=== PATIENT | male | born 1955 ===

== ENCOUNTER 2016-09-17 08:52 | Observation (INO) | payer MEDICAID ==
[2016-09-17 09:03] VITALS: BMI 35.0
[2016-09-17] MEDS ORDERED: Sodium Chloride 0.9% 1,000 ML IV STA (09:33)
[2016-09-17 10:19] LABS: BASO % 0.6 % (0.0-2.0); EOS % 0.4 % (0.0-4.0); HEMOGLOBIN 15.4 g/dL (12.0-18.0); MEAN CELL VOLUME 97.6 fl (80.0-94.0); MEAN CORPUSCULAR HEMOGLOBIN 32.6 pg (27.0-31.0); MEAN CORPUSCULAR HGB CONC 33.4 g/dL (33.0-37.0); MONO # 0.9 K/uL (0.0-0.8); MONO % 11.8 % (0.0-10.0); NEUT % 62.2 % (50.0-75.0); NRBC % 0.1 % (0.0-0.0); RBC 4.73 Mil/uL (4.40-5.90); RED CELL DISTRIBUTION WIDTH 12.8 % (11.5-14.5)
[2016-09-17 10:20] LABS: URINE BACTERIA RARE (<OCC); URINE BILIRUBIN NEGATIVE (NEGATIVE); URINE BLOOD NEGATIVE (NEGATIVE); URINE CLARITY SLIGHTY-CLOUDY (Clear); URINE COLOR YELLOW (YELLOW); URINE GLUCOSE (UA) NEG (Normal); URINE LEUKOCYTE ESTERASE NEG Leu/uL (Negative); URINE NITRATE NEGATIVE (NEGATIVE); URINE PROTEIN NEGATIVE (NEGATIVE)
[2016-09-17 10:26] LABS: ALB/GLOB RATIO 1.3 (1.0-2.1); ALBUMIN 4.9 g/dL (3.5-5.0); ALT/SGPT 35 U/L (21-72); AST/SGOT 42 U/L (17-59); BLOOD UREA NITROGEN 10 mg/dl (9-20); CALCIUM 11.3 mg/dL (8.4-10.2); GFR AFRICAN-AMERICAN > 60; GFR NON-AFRICAN AMERICAN > 60
[2016-09-17] MEDS ORDERED: Iohexol 300 100 ML IJ ONE (10:34)
[2016-09-17] MEDS ORDERED: Sodium Chloride 0.9% 50 ML IV ONE (10:35)
--- NOTE | 2016-09-17 10:57 | RAD ---
HISTORY: chest pain/ r/o infiltrate COMPARISON: 05/08/2014. TECHNIQUE: Chest PA and lateral FINDINGS: LUNGS: The lungs are well inflated and clear. PLEURA: No significant pleural effusion identified. No pneumothorax apparent. CARDIOVASCULAR: Normal. OSSEOUS STRUCTURES: No significant abnormalities. VISUALIZED UPPER ABDOMEN: Normal. OTHER FINDINGS: None. IMPRESSION: No active pulmonary disease.
--- NOTE | 2016-09-17 12:09 | CT ---
PROCEDURE: CT Pelvis with contrast HISTORY: Rectal pain, HIV, fever r/o abscess COMPARISON: None. TECHNIQUE: Contiguous axial images of the pelvis with contrast. Coronal and sagittal reformats generated. Contrast dose: 95 cc Omnipaque 300 Radiation dose: Total exam DLP = 665.27 mGy-cm. This CT exam was performed using one or more of the following dose reduction techniques: Automated exposure control, adjustment of the mA and/or kV according to patient size, and/or use of iterative reconstruction technique. FINDINGS: BLADDER: Grossly normal in appearance. No mass. REPRODUCTIVE ORGANS: The prostate gland is normal in size. VISUALIZED BOWEL: Normal in caliber. There is abnormal soft tissue in the perianal region with 1.2 x 1.3 cm low-attenuation collection in the right perianal region and 1.3 x 1.2 cm low attenuation collection in the posterior left paramedian perianal region. There is surrounding fat stranding an also fat stranding in the distal rectal foci up. No evidence of abscess in the distal rectum foci. PERITONEUM: Unremarkable, as visualized. No free fluid. No free air. LYMPH NODES: No enlarged lymph nodes. VASCULATURE: Normal-appearing. BONES: No fracture or focal lesion. OTHER FINDINGS: There are bilateral small fat containing inguinal hernias. IMPRESSION: Findings are most compatible with a 1.2 x 1.3 cm abscess in the right perianal region and a 1.3 x 1.2 cm abscess in the posterior and left paramedian perianal region.
[2016-09-17] MEDS ORDERED: Piperacillin/Tazobact 4.5 GM in Sodium Chloride 0.9% 100 ML IVPB STA (12:14)
--- NOTE | 2016-09-17 12:21 | ED PDOC ---
HPI: General Adult Time Seen by Provider: 09/17/16 09:10 Chief Complaint (Nursing): Flu-like Symptoms Chief Complaint (Provider): sore throat History Per: Patient History/Exam Limitations: no limitations Onset/Duration Of Symptoms: Days (x 3-4) Have you had recent travel within the past 21 days to any of the following countries: [place], [place], [place] or [place]?: No Additional Complaint(s): Gian Newton is a 60 year old male, with a previous medical history of HIV positive and hemorrhoids, who presents to the ED with complaints of a sore throat associated with body aches, chills and rectal pain ongoing for the past 3 -4 days. Patient denies any bloody stool or rectal trauma. Patient reports last blood work showed an undetectable viral load. PMD: John Paul Rios MD Past Medical History Reviewed: Historical Data, Nursing Documentation, Vital Signs Vital Signs: Last Vital Signs Temp 97.7 F 09/17/16 15:31 Pulse 78 09/17/16 15:31 Resp 19 09/17/16 15:31 BP 128/78 09/17/16 15:31 Pulse Ox 98 09/17/16 15:31 - Medical History PMH: Anxiety, Back Problems, Depression, HIV Denies: Chronic Kidney Disease - Family History Family History: States: Unknown Family Hx - Immunization History Hx Influenza Vaccination: No Hx Pneumococcal Vaccination: No - Home Medications Home Medications: Ambulatory Orders Medication Instructions Recorded Amitriptyline [Elavil] 25 mg PO HS 09/17/16 Amoxicillin/Clavulanate [Augmentin 1 tab PO BID #14 tab 09/17/16 875 MG-125 MG] Elviteg/Bianca/Emtric/Tenofo Dis 1 tab PO DAILY 09/17/16 [Stribild Tablet] Ergocalciferol (Vitamin D2) 50,000 unit PO QWK 09/17/16 [Vitamin D2] busPIRone [Buspar] 5 mg PO BID 09/17/16 traMADol [Ultram] 50 mg PO TID PRN #12 tab 09/17/16 Clindamycin [Cleocin] 300 mg PO TID #21 cap 09/21/16 - Allergies Allergies/Adverse Reactions: Allergies Allergy/AdvReac Type Severity Reaction Status Date / Time ibuprofen [From Motrin] AdvReac VOMITING Verified 09/21/15 12:22 Review of Systems ROS Statement: Except As Marked, All Systems Reviewed And Found Negative Constitutional: Positive for: Chills, Other (body aches) ENT: Positive for: Throat Pain Gastrointestinal: Positive for: Rectal Pain Physical Exam - Reviewed Nursing Documentation Reviewed: Yes Vital Signs Reviewed: Yes - Physical Exam Appears: Positive for: Well, Non-toxic, No Acute Distress Head Exam: Positive for: ATRAUMATIC, NORMAL INSPECTION, NORMOCEPHALIC Skin: Positive for: Normal Color, Warm, Dry Eye Exam: Positive for: EOMI, Normal appearance, PERRL ENT: Positive for: Pharyngeal Erythema Neck: Positive for: Normal, Painless ROM Cardiovascular/Chest: Positive for: Regular Rate, Rhythm Respiratory: Positive for: CNT, Normal Breath Sounds Gastrointestinal/Abdominal: Positive for: Normal Exam, Bowel Sounds, Soft Back: Positive for: Normal Inspection Rectal: Positive for: Tenderness (left rectal wall with digital rectak exam ). Negative for: Hemorrhoids Extremity: Positive for: Normal ROM Neurologic/Psych: Positive for: Alert, Oriented - Laboratory Results Result Diagrams: 09/17/16 10:01 09/17/16 10:01 - ECG O2 Sat by Pulse Oximetry: 97 (RA) Pulse Ox Interpretation: Normal Medical Decision Making Medical Decision Making: Initial Impression: r/o rectal abscess Initial Plan: * CT pelvis w/IV contrast * labs * total creatinine kinase * CXR * IV NS 1,000 ml at 1,000 ml/hr * zosyn * throat culture * rapid strep * urinalysis * reevaluation Blood work is unremarkable for any findings. 11:21 CT pelvis FINDINGS: BLADDER: Grossly normal in appearance. No mass. REPRODUCTIVE ORGANS: The prostate gland is normal in size. VISUALIZED BOWEL: Normal in caliber. There is abnormal soft tissue in the perianal region with 1.2 x 1.3 cm low-attenuation collection in the right perianal region and 1.3 x 1.2 cm low attenuation collection in the posterior left paramedian perianal region. There is surrounding fat stranding an also fat stranding in the distal rectal foci up. No evidence of abscess in the distal rectum foci. PERITONEUM: Unremarkable, as visualized. No free fluid. No free air. LYMPH NODES: No enlarged lymph nodes. VASCULATURE: Normal-appearing. BONES: No fracture or focal lesion. OTHER FINDINGS: There are bilateral small fat containing inguinal hernias. IMPRESSION: Findings are most compatible with a 1.2 x 1.3 cm abscess in the right perianal region and a 1.3 x 1.2 cm abscess in the posterior and left paramedian perianal region. -------- surgical team attempted I&D at bedside, stated stable for DC home w Abx and will see in office/clinic in 3-4 days. Patient educated on findings, need for Abx use, and indications for return to ED. Scribe Attestation: Documented by Andreia Kent, acting as a scribe for Placido Sanchez D.O. Provider Scribe Attestation: All medical record entries made by the Scribe were at my direction and personally dictated by me. I have reviewed the chart and agree that the record accurately reflects my personal performance of the history, physical exam, medical decision making, and the department course for this patient. I have also personally directed, reviewed, and agree with the discharge instructions and disposition. Disposition - Clinical Impression Clinical Impression: Perianal abscess, HIV (human immunodeficiency virus infection) - Patient ED Disposition Is Patient to be Admitted: No Counseled Patient/Family Regarding: Studies Performed, Diagnosis - Disposition Disposition: Routine/Home Disposition Time: 13:00 Condition: FAIR
[2016-09-17] MEDS ORDERED: Povidone Iodine Oint 10% Foilpak UD ONE (12:57)
[2016-09-17] MEDS ORDERED: Lidocaine 1% Inj (20ml) IJ ONE (13:02)
--- NOTE | 2016-09-17 13:44 | CP.PCM.CON ---
History of Present Illness - History of Present Illness History of Present Illness: Surgery: Dr. Anders CC: Rectal pain HPI: 60M w. pmh of anxiety, depression, HIV, presents with worsening rectal pain x 1 week. He states that the pain is constant. Has burning sensation. Pain is worse when sitting/pressure is applied. He denies any changes in bowel habits. No blood or pus has been noticed. He has never had his before. He states that he has had subjective chills and fevers. He denies any other complaints. CT in ED showed small astrid-rectal abscess x 2. PMH: anxiety, depression, HIV, PSH: Right foot Meds: MAR reviewed ALL: ibuprofen Social: +Tobacco, no ETOH/drugs Fhx: Non-constributory Review of Systems - Review of Systems All systems: reviewed and no additional remarkable complaints except (HPI) Past Patient History - Infectious Disease Hx of Infectious Diseases: None - Past Medical History & Family History Past Medical History?: Yes - Past Social History Smoking Status: Light Smoker < 10 Cigarettes Daily - CARDIAC Hx Cardiac Disorders: No - PULMONARY Hx Respiratory Disorders: No - NEUROLOGICAL Hx Neurological Disorder: No - HEENT Hx HEENT Problems: No - RENAL Hx Chronic Kidney Disease: No - ENDOCRINE/METABOLIC Hx Endocrine Disorders: No - HEMATOLOGICAL/ONCOLOGICAL Hx Human Immunodeficiency Virus (HIV): Yes - INTEGUMENTARY Hx Dermatological Problems: No - MUSCULOSKELETAL/RHEUMATOLOGICAL Hx Musculoskeletal Disorders: Yes Hx Osteoarthritis: Yes - GASTROINTESTINAL Hx Gastrointestinal Disorders: No - GENITOURINARY/GYNECOLOGICAL Hx Genitourinary Disorders: No - PSYCHIATRIC Hx Anxiety: Yes Hx Depression: Yes - SURGICAL HISTORY Hx Surgeries: Yes Hx Orthopedic Surgery: Yes (RIGHT FOOT HAMMERTOE) - ANESTHESIA Hx Anesthesia: Yes Hx Anesthesia Reactions: No Hx Malignant Hyperthermia: No Meds Allergies/Adverse Reactions: Allergies Allergy/AdvReac Type Severity Reaction Status Date / Time ibuprofen [From Motrin] AdvReac VOMITING Verified 09/21/15 12:22 - Medications Medications: Current Medications Hydromorphone HCl (Dilaudid) 0.5 mg IVP Q4 PRN PRN Reason: Pain, moderate (4-7) Physical Exam - Constitutional Appears: Non-toxic, No Acute Distress - Head Exam Head Exam: ATRAUMATIC, NORMOCEPHALIC - Eye Exam Eye Exam: EOMI - ENT Exam ENT Exam: Mucous Membranes Moist, Normal External Ear Exam - Neck Exam Neck exam: Positive for: Full Rom - Respiratory Exam Respiratory Exam: NORMAL BREATHING PATTERN. absent: Accessory Muscle Use, Respiratory Distress - GI/Abdominal Exam GI & Abdominal Exam: Soft. absent: Tenderness - Rectal Exam Additional comments: R side astrid-rectal area tender to palpation, small area of fluctuance w. surrounding induration - Extremities Exam Extremities exam: Negative for: calf tenderness, pedal edema - Neurological Exam Neurological exam: Alert, Oriented x3 Results - Vital Signs Recent Vital Signs: Last Vital Signs Temp 98.3 F 09/17/16 12:39 Pulse 80 09/17/16 12:39 Resp 18 09/17/16 12:39 BP 140/89 09/17/16 12:39 Pulse Ox 97 09/17/16 12:27 - Labs Result Diagrams: 09/17/16 10:01 09/17/16 10:01 - Imaging and Cardiology CT scan - pelvis Status: Image reviewed by me, Report reviewed by me Assessment & Plan - Assessment and Plan (Free Text) Assessment: 60M w. perirectal abscess -afebrile, no leukocytosis -attempts to aspirate collection unsuccessful, no laudable pus expressed, however pt states that he does feel better w. improved pain -Recommend cipro/flagyl for 1 week -sitz bath / warm shower 2-3 xs / day -percocet for pain -follow up w. Dr. Anders in 1 week -if symptoms worsen or concerns arise, return to ED -discussed w. sid Box PGY3 - Incision & Drainage Of Abscess Anesthesia: Lidocaine 1% Prep Used: Betadine Procedure: Incised W/Scalpel Blade#: (Unsuccessfuly attempted to aspirate w. 18G needle), Drained Pus (No pus drained)
[2016-09-17 15:32] VITALS: BP 128/78; PULSE 78; RESP 19; TEMP 97.7
[2016-09-22 11:43] VITALS: O2SAT 97
== END 2016-09-17 15:32 | disposition home or self-care (01) ==
LOC: H.ER 08:52 → H.ERHOLD 12:18
PROVIDERS: ADMIT Family Medicine; ATTEND Family Medicine
DX: K61.1 Rectal abscess (principal); F41.9 Anxiety disorder, unspecified; F32.9 Major depressive disorder, single episode, unspecified; Z21 Asymptomatic human immunodeficiency virus [HIV] infection status; F17.210 Nicotine dependence, cigarettes, uncomplicated; Z88.6 Allergy status to analgesic agent

== ENCOUNTER 2016-09-21 15:02 | Emergency (ER) | payer MEDICAID ==
[2016-09-21 15:04] VITALS: BMI 35.0
[2016-09-21 15:23] VITALS: BP 122/68; PULSE 78; RESP 18; TEMP 97.3; O2SAT 98
--- NOTE | 2016-09-21 15:45 | ED PDOC ---
HPI: Wound Care - HPI Time Seen by Provider: 09/21/16 15:24 Chief Complaint (Nursing): Wound Check Chief Complaint (Provider): Wound check History Per: Patient Exam Limitations: no limitations Onset/Duration Of Symptoms: Days Quality Of Symptoms: Draining Additional Complaint(s): The patient is a 60 y/o male, presents to ED for evaluation of a rectal abscess. Patient was seen in this facility on 09/17/16 and has bedside I&D of abscess. He was sent home on augmentin. Patient reports he feels better and states abscess is actively draining. He denies any fever or chills and states pain to affected area is much better. Patient denies any other medical complaints and reports he presents today because he wanted abscess re-evaluated. Past Medical History Reviewed: Historical Data, Nursing Documentation, Vital Signs Vital Signs: Last Vital Signs Temp 97.3 F L 09/21/16 15:21 Pulse 78 09/21/16 15:21 Resp 18 09/21/16 15:21 BP 122/68 09/21/16 15:21 Pulse Ox 98 09/21/16 15:21 - Medical History PMH: Anxiety, Back Problems, Depression, HIV - Family History Family History: States: No Known Family Hx - Living Arrangements Living Arrangements: With Family - Social History Current smoker - smoking cessation education provided: No Alcohol: None Drugs: Denies - Home Medications Home Medications: Ambulatory Orders Medication Instructions Recorded Amitriptyline [Elavil] 25 mg PO HS 09/17/16 Amoxicillin/Clavulanate [Augmentin 1 tab PO BID #14 tab 09/17/16 875 MG-125 MG] Elviteg/Bianca/Emtric/Tenofo Dis 1 tab PO DAILY 09/17/16 [Stribild Tablet] Ergocalciferol (Vitamin D2) 50,000 unit PO QWK 09/17/16 [Vitamin D2] busPIRone [Buspar] 5 mg PO BID 09/17/16 traMADol [Ultram] 50 mg PO TID PRN #12 tab 09/17/16 Clindamycin [Cleocin] 300 mg PO TID #21 cap 09/21/16 - Allergies Allergies/Adverse Reactions: Allergies Allergy/AdvReac Type Severity Reaction Status Date / Time ibuprofen [From Motrin] AdvReac VOMITING Verified 09/21/15 12:22 Review of Systems ROS Statement: Except As Marked, All Systems Reviewed And Found Negative Constitutional: Negative for: Fever, Chills Skin: Positive for: Other (draining rectal abscess - here for wound check) Physical Exam - Reviewed Nursing Documentation Reviewed: Yes Vital Signs Reviewed: Yes - Physical Exam Appears: Positive for: Well, Non-toxic, No Acute Distress Head Exam: Positive for: ATRAUMATIC, NORMAL INSPECTION, NORMOCEPHALIC Skin: Positive for: Normal Color, Warm, DRY Eye Exam: Positive for: Normal appearance Cardiovascular/Chest: Positive for: Regular Rate, Rhythm Respiratory: Positive for: Normal Breath Sounds. Negative for: Respiratory Distress Rectal: Positive for: Rectal Tone Is: (normal), Other (Nurse Mat Jung as crime victim specialist; well healed, actively draining perirectal abscess. Minimal tenderness to palpation). Negative for: Mass Extremity: Positive for: Normal ROM Neurologic/Psych: Positive for: Alert, Oriented - ECG O2 Sat by Pulse Oximetry: 98 (RA) Pulse Ox Interpretation: Normal Medical Decision Making Medical Decision Making: Time: 1535 Impression: Wound check of astrid-rectal abscess Abscess is actively draining and non-tender, appears to be healing well. Patient was instructed to continue with Augmentin but was also given prescription for clindamycin. He was advised to continue with sitz bath with Epsom salts to promote drainage. Patient was instructed too have wound reevaluated in 2-3 days and is aware he can return to ED any time if acutely worse. Scribe Attestation: Documented by Leigha Kimbrough acting as a scribe for PREMA [employer] Provider Attestation: All medical record entries made by the Scribe were at my direction and personally dictated by me. I have reviewed the chart and agree that the record accurately reflects my personal performance of the history, physical exam, medical decision making, and the department course for this patient. I have also personally directed, reviewed, and agree with the discharge instructions and disposition. Disposition - Clinical Impression Clinical Impression: Encounter for wound re-check, Perianal abscess - Patient ED Disposition Is Patient to be Admitted: No Counseled Patient/Family Regarding: Diagnosis, Need For Followup, Rx Given - Disposition Referrals: John Paul Rios MD [Family Provider] - Disposition: Routine/Home Disposition Time: 16:15 Condition: STABLE Additional Instructions: Continue current antibiotic and take new medication as directed. Advil or Tylenol for pain as needed. Continue with sitz baths with Epsom salts to promote continued drainage. Have wound reevaluated in 2-3 days. Prescriptions: Clindamycin [Cleocin] 300 mg PO TID #21 cap Instructions: Abscess (ED)
== END 2016-09-21 16:58 | disposition home or self-care (01) ==
LOC: H.ER 15:02
DX: Z48.00 Encounter for change or removal of nonsurgical wound dressing (principal); F41.9 Anxiety disorder, unspecified; F32.9 Major depressive disorder, single episode, unspecified

== ENCOUNTER 2016-11-24 08:34 | Observation (INO) | payer MEDICAID ==
[2016-11-24 08:34] VITALS: BMI 35.0
[2016-11-24 08:46] VITALS: BP 142/90; PULSE 83; RESP 16; TEMP 97; O2SAT 99
--- NOTE | 2016-11-24 09:24 | ED PDOC ---
HPI: General Adult Time Seen by Provider: 11/24/16 09:05 Chief Complaint (Nursing): Abnormal Skin Integrity Chief Complaint (Provider): Rectal abscess History Per: Patient History/Exam Limitations: no limitations Onset/Duration Of Symptoms: Other (3 months) Current Symptoms Are (Timing): Still Present Additional Complaint(s): Patient is a 61 y/o male with a past medical history of HIV presenting to the emergency department for evaluation of a rectal abscess x 3 months. Also reports pain and blood associated with wiping (but unsure of presence of any pus ) and notes that stool appears as "broken pieces." Denies follow up with surgeon , abdominal pain, nausea, vomiting, chest pain, shortness of breath, and other complaints. Of note, patient was put on an antibiotic treatment by his PCP for ten days with no improvement of symptoms. PCP: Dr. John Paul Rios Surgeon: Dr. Anders Past Medical History Reviewed: Historical Data, Nursing Documentation, Vital Signs Vital Signs: Last Vital Signs Temp 97.0 F L 11/24/16 08:44 Pulse 83 11/24/16 08:44 Resp 16 11/24/16 08:44 BP 142/90 11/24/16 08:44 Pulse Ox 99 11/24/16 13:02 - Medical History PMH: Anxiety, Back Problems, Depression, HIV Denies: Chronic Kidney Disease - Surgical History Surgical History: No Surg Hx Other surgeries: Right foot - Family History Family History: States: Unknown Family Hx - Social History Current smoker - smoking cessation education provided: Yes (less than ten cigarettes/day) Ex-Smoker (has not smoked in the last 12 months): No Alcohol: None Drugs: Denies - Immunization History Hx Influenza Vaccination: No Hx Pneumococcal Vaccination: No - Home Medications Home Medications: Ambulatory Orders Medication Instructions Recorded Amitriptyline [Elavil] 25 mg PO HS 09/17/16 Amoxicillin/Clavulanate [Augmentin 1 tab PO BID #14 tab 09/17/16 875 MG-125 MG] Elviteg/Bianca/Emtric/Tenofo Dis 1 tab PO DAILY 09/17/16 [Stribild Tablet] Ergocalciferol (Vitamin D2) 50,000 unit PO QWK 09/17/16 [Vitamin D2] busPIRone [Buspar] 5 mg PO BID 07/14/17 traMADol [Ultram] 50 mg PO TID PRN #12 tab 09/17/16 Clindamycin [Cleocin] 300 mg PO TID #21 cap 09/21/16 - Allergies Allergies/Adverse Reactions: Allergies Allergy/AdvReac Type Severity Reaction Status Date / Time ibuprofen [From Motrin] AdvReac VOMITING Verified 09/21/15 12:22 Review of Systems ROS Statement: Except As Marked, All Systems Reviewed And Found Negative Constitutional: Negative for: Fever Cardiovascular: Negative for: Chest Pain Respiratory: Negative for: Shortness of Breath Gastrointestinal: Positive for: Rectal Pain (associated with bowel movements). Negative for: Nausea, Vomiting, Abdominal Pain Skin: Positive for: Other (Rectal abscess) Physical Exam - Reviewed Nursing Documentation Reviewed: Yes Vital Signs Reviewed: Yes - Physical Exam Appears: Positive for: Non-toxic, No Acute Distress Head Exam: Positive for: ATRAUMATIC, NORMAL INSPECTION, NORMOCEPHALIC Skin: Positive for: Normal Color, Warm, Dry Eye Exam: Positive for: Normal appearance Neck: Positive for: Normal Cardiovascular/Chest: Positive for: Regular Rate, Rhythm. Negative for: Murmur Respiratory: Positive for: Normal Breath Sounds. Negative for: Accessory Muscle Use, Respiratory Distress Gastrointestinal/Abdominal: Positive for: Normal Exam, Bowel Sounds, Soft. Negative for: Tenderness Back: Positive for: Normal Inspection. Negative for: L CVA Tenderness, R CVA Tenderness Rectal: Positive for: Hemorrhoids, Tenderness (R rectal wall 12 and 3 o clock) Extremity: Positive for: Normal ROM. Negative for: Tenderness, Pedal Edema Neurologic/Psych: Positive for: Alert, Oriented (x3) - Laboratory Results Result Diagrams: 11/24/16 10:05 11/24/16 10:05 Interpretation Of Abn Labs: no acute - ECG O2 Sat by Pulse Oximetry: 99 (RA) Pulse Ox Interpretation: Normal Medical Decision Making Medical Decision Making: Time: 09:40 Initial impression: Rectal abscess Initial plan: Labs Pelvis CT Scan w/ IV contrast Toradol 15 mg IVP Normal Saline 1 L Blood Culture Admit to ED Observation Reevaluation 12:[address] scan reviewed. Findings noted as follows: BLADDER: Urinary bladder incompletely distended which presumably accounts for slight thick-walled appearance. Muscular hypertrophy may contribute. REPRODUCTIVE ORGANS: Prostate gland and seminal vesicles unremarkable. VISUALIZED BOWEL: . There are scattered colonic diverticula seen along the sigmoid and distal descending colon however no radiographic evidence of acute diverticulitis. PERITONEUM: Unremarkable, as visualized. No free fluid. No free air. . LYMPH NODES: Unremarkable. No enlarged lymph nodes. VASCULATURE: Unremarkable. BONES: No fracture or focal lesion. OTHER FINDINGS: 2 or 3 small previously low-attenuation collections (cluster like) presumed small abscess collections), in the perianal region have undergone improvement. There is a small residual approximately 11 mm bx 6.5 mm elliptical shaped area of low attenuation in the right parasagittal and mid posterior perianal region with an ill-defined area of increased attenuation slightly more anteriorly located. . No evidence of rim enhancement or infiltration in the adjacent soft tissues or CT of the adjacent perineum. Small bilateral fat containing inguinal hernias. IMPRESSION: Interval improvement previously noted the 2 or 3 tiny low-attenuation collections in the perianal region. There is a small residual 11 mm x 6.5 mm low-attenuation focus in the right parasagittal and mid posterior perianal region a.m. with that an area increased attenuation the more anteriorly located. Findings likely represent post residua however no peripheral enhancement or surrounding infiltration. Diverticulosis. No radiographic evidence of acute diverticulitis. Scribe Attestation: Documented by Becky Milan, acting as a scribe for Duncan Castro MD. Provider Scribe Attestation: All medical record entries made by the Scribe were at my direction and personally dictated by me. I have reviewed the chart and agree that the record accurately reflects my personal performance of the history, physical exam, medical decision making, and the department course for this patient. I have also personally directed, reviewed, and agree with the discharge instructions and disposition. ED OBSERVATION Date of observation admission: 11/24/16 Time of observation admission: 09:40 - Observation admission statement Patient is being placed in observation because:: pain eval - Goals of Observation Goals of observation are:: monitor pain and eval - Progress Note Progress Note: 11/24/16 09:40 Patient's vitals are stable. Pelvis CT scan pending. 11/24/16 11:10 Patient's condition remains stable. Pelvis CT scan pending. 11/24/16 12:40 Patient's condition remains stable. Pelvis CT report pending. 11/24/16 13:11 Pt. let before treatment complete. Telling nurse that he had an appt with the mental health clinic. On re-eval pt. not in room. No IV. Pt. was stable and ambulating when last seen. Disposition - Clinical Impression Clinical Impression: External hemorrhoids - Patient ED Disposition Is Patient to be Admitted: No - Disposition Disposition: Left W/O Treatment Disposition Time: 13:13 Condition: STABLE
[2016-11-24] MEDS ORDERED: Sodium Chloride 0.9% 1,000 ML IV STA (09:42)
[2016-11-24 10:28] LABS: BASO % 0.7 % (0.0-2.0); EOS # 0.1 K/uL (0.0-0.7); HEMATOCRIT 45.2 % (35.0-51.0); LYMPH # 1.6 K/uL (1.0-4.3); LYMPH % 43.4 % (20.0-40.0); MEAN CELL VOLUME 95.8 fl (80.0-94.0); MEAN CORPUSCULAR HEMOGLOBIN 32.4 pg (27.0-31.0); MEAN CORPUSCULAR HGB CONC 33.8 g/dL (33.0-37.0); MEAN PLATELET VOLUME 7.1 fl (7.2-11.7); MONO # 0.3 K/uL (0.0-0.8); MONO % 9.4 % (0.0-10.0); NEUT # 1.6 K/uL (1.8-7.0); NEUT % 43.5 % (50.0-75.0); NRBC % 0.1 % (0.0-0.0); WHITE BLOOD COUNT 3.6 K/uL (4.8-10.8)
[2016-11-24 10:38] LABS: ALB/GLOB RATIO 1.6 (1.0-2.1); ALKALINE PHOSPHATASE 80 U/L (38-126); ALT/SGPT 47 U/L (21-72); AST/SGOT 31 U/L (17-59); BILIRUBIN,TOTAL 1.8 mg/dl (0.2-1.3); BLOOD UREA NITROGEN 8 mg/dl (9-20); CALCIUM 11.1 mg/dL (8.4-10.2); CARBON DIOXIDE 23 mmol/L (22-30); CHLORIDE 108 mmol/L (98-107); GFR AFRICAN-AMERICAN > 60; GLUCOSE,RANDOM 105 mg/dL (75-110); POTASSIUM 4.4 MMOL/L (3.6-5.0); SODIUM 141 mmol/l (132-148); TOTAL PROTEIN 7.7 G/DL (6.3-8.2)
[2016-11-24 10:38] LABS: VENOUS BLOOD GAS BASE EXCESS 0.9 mmol/L (0.0-2.0); VENOUS BLOOD GAS PCO2 42 mmHg (40-60)
[2016-11-24] MEDS ORDERED: Sodium Chloride 0.9% 50 ML IV ONE (11:19)
[2016-11-24] MEDS ORDERED: Iohexol 300 100 ML IJ ONE (11:19)
--- NOTE | 2016-11-24 12:57 | CT ---
PROCEDURE: CT pelvis dated 11/24/2016 HISTORY: Pain rectum/ eval abscess COMPARISON: Comparison made with CT scan pelvis dated 09/17/2016. TECHNIQUE: Contiguous helical/transaxial images of the pelvis with contrast. Coronal and sagittal reformats generated. Contrast dose: 96 cc Omnipaque 300 contrast material. Radiation dose: Total exam DLP = 622.74 mGy-cm. This CT exam was performed using one or more of the following dose reduction techniques: Automated exposure control, adjustment of the mA and/or kV according to patient size, and/or use of iterative reconstruction technique. FINDINGS: BLADDER: Urinary bladder incompletely distended which presumably accounts for slight thick-walled appearance. Muscular hypertrophy may contribute. REPRODUCTIVE ORGANS: Prostate gland and seminal vesicles unremarkable. VISUALIZED BOWEL: . There are scattered colonic diverticula seen along the sigmoid and distal descending colon however no radiographic evidence of acute diverticulitis. PERITONEUM: Unremarkable, as visualized. No free fluid. No free air. . LYMPH NODES: Unremarkable. No enlarged lymph nodes. VASCULATURE: Unremarkable. BONES: No fracture or focal lesion. OTHER FINDINGS: 2 or 3 small previously low-attenuation collections (cluster like) presumed small abscess collections), in the perianal region have undergone improvement. There is a small residual approximately 11 mm bx 6.5 mm elliptical shaped area of low attenuation in the right parasagittal and mid posterior perianal region with an ill-defined area of increased attenuation slightly more anteriorly located. . No evidence of rim enhancement or infiltration in the adjacent soft tissues or CT of the adjacent perineum. Small bilateral fat containing inguinal hernias. IMPRESSION: Interval improvement previously noted the 2 or 3 tiny low-attenuation collections in the perianal region. There is a small residual 11 mm x 6.5 mm low-attenuation focus in the right parasagittal and mid posterior perianal region a.m. with that an area increased attenuation the more anteriorly located. Findings likely represent post residua however no peripheral enhancement or surrounding infiltration. Diverticulosis. No radiographic evidence of acute diverticulitis. [place]
== END 2016-11-24 13:17 | disposition home or self-care (01) ==
LOC: H.ER 08:34 → H.EROBSV 09:43
PROVIDERS: ADMIT Emergency Medicine; ATTEND Emergency Medicine
DX: K64.4 Residual hemorrhoidal skin tags (principal); Z21 Asymptomatic human immunodeficiency virus [HIV] infection status; F41.9 Anxiety disorder, unspecified; F32.9 Major depressive disorder, single episode, unspecified; F17.210 Nicotine dependence, cigarettes, uncomplicated; K57.90 Diverticulosis of intestine, part unspecified, without perforation or abscess without bleeding
CPT/HCPCS: 36415; 72193; 80053; 82803; 85025; 87040; 96374; 99282; G0378; J1885; J7040; Q9967

== ENCOUNTER 2017-03-22 06:05 | Day surgery (SDC) | payer MEDICAID ==
[2017-03-16 08:55] VITALS: BMI 33.9
[2017-03-22] MEDS ORDERED: Lactated Ringer's 1,000 ML IV ONE (06:52)
[2017-03-22] MEDS ORDERED: Propofol 10 mg/ml Inj (20 ML) ONE (07:10)
[2017-03-22] MEDS ORDERED: Succinylcholine 200 mg/10 ml Inj IV ONE (07:11)
[2017-03-22] MEDS ORDERED: Phenylephrine 10 mg/ml Inj ONE (07:11)
[2017-03-22] MEDS ORDERED: ePHEDrine 50 mg/ml Inj ONE (07:11)
[2017-03-22] MEDS ORDERED: Rocuronium 10 mg/ml (5 ml) ONE (07:11)
[2017-03-22] MEDS ORDERED: Midazolam 2 MG/2 ML VIAL ONE (07:11)
[2017-03-22] MEDS ORDERED: EPINEPHrine 1 mg/ml (1:1000) Inj ONE (07:50)
[2017-03-22] MEDS ORDERED: Lidocaine 2% w Epi 1:100,000 Inj IJ ONE (07:51)
[2017-03-22] MEDS ORDERED: Lidocaine 1% Inj (20ml) ONE (07:51)
[2017-03-22] MEDS ORDERED: Bupivacaine 0.5% Inj(30mL) ONE (08:15)
[2017-03-22] MEDS ORDERED: MethylPREDNISolone Depo 40 mg/ml Inj ONE (08:15)
[2017-03-22] MEDS ORDERED: EPINEPHrine 1 mg/ml (1:1000) Inj IV ONE (08:32)
[2017-03-22] MEDS ORDERED: Lidocaine 2% w Epi 1:200,000 Pf Inj IJ ONE ×2 (08:32)
[2017-03-22] MEDS ORDERED: Bupivacaine 0.5% 50 ML IJ ONE ×2 (08:38→08:46)
[2017-03-22] MEDS ORDERED: MethylPREDNISolone Depo 40 mg/ml Inj IM ONE ×2 (08:39→08:46)
--- NOTE | 2017-03-22 09:02 | PCM.SURG1 ---
Surgeon's Initial Post Op Note - Surgeon's Notes Surgeon: Raysa Jackson MD [employer] Furn[employer] Operator: Leeanne Hawley PA-C Type of Anesthesia: General Endo Pre-Operative Diagnosis: Right knee meniscus tear Operative Findings: see op report Post-Operative Diagnosis: same as pre-op dx Operation Performed: Right knee arthroscopy, partial meniscectomy, synovetomy Specimen/Specimens Removed: none Estimated Blood Loss: EBL {In ML}: 3 Date of Surgery/Procedure: 03/22/17 Time of Surgery/Procedure: 08:15
[2017-03-22] MEDS ORDERED: Oxycodone/Acetaminophen 5/325 mg Tab PO PRN (09:03)
[2017-03-22] MEDS ORDERED: HYDROmorphone 0.5 mg/0.5 ml ISec IVP PRN (09:10)
[2017-03-22 11:25] VITALS: RESP 20
--- NOTE | 2017-03-22 11:51 | OP ---
PROCEDURE DATE: 03/22/2017 PREOPERATIVE DIAGNOSES: 1. Right knee medial meniscal tear. 2. Synovitis. POSTOPERATIVE DIAGNOSES: 1. Right knee medial synovitis of all three compartments. 2. Medial meniscal tear. 3. Lateral meniscal tear. 4. Anterior patellofemoral adhesions. 5. Loose bodies. 6. 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 PROCEDURES: 1. Right knee partial medial and lateral meniscectomy. 2. Major synovectomy of all three compartments. 3. Chondroplasty of medial femoral condyle. 4. Anterior patellofemoral lysis of adhesions. 5. Removal of loose bodies. 6. Injection of large joint. ATTENDING PHYSICIAN: Raysa Jackson MD. LIVING SUPERVISOR: Leeanne Hawley PA-C. TYPE OF ANESTHESIA: General. ESTIMATED BLOOD LOSS: 5 mL. SPECIMENS: None. DRAINS: None CLOSURE: Primary FLUIDS: See anesthesia sheet. COMPLICATIONS: None INDICATIONS: After failing a course of nonoperative therapy, the patient elected to undergo the above procedure. In the office, the risks and possible complications of knee arthroscopy were discussed in detail with the patient. These risks include but are not limited to continued pain, lack of motion, infection, vascular injury, DVT / PE, nerve injury including peroneal nerve dysfunction, reflex sympathetic dystrophy, compartment syndrome, unforeseen medical and/or anesthesia complications, limb loss, and even . The patient expressed an understanding of the risks and possible benefits of the procedure, and is also aware of the alternatives to surgery. An informed consent was obtained, and was checked immediately preop. DESCRIPTION OF PROCEDURE: The patient was correctly identified in the holding area and the right knee was marked with the surgeon's initials. The patient was transported to the operating room and placed in the supine position, general anesthesia was obtained. A preoperative orthopedic exam revealed effusion of 1+, range of motion was from 3 to 110, stable to varus and valgus stress. The lower extremity was prepped and draped in the standard fashion, and the thigh was placed in an arthroscopic leg lawrence. A well-padded tourniquet was applied to the patient's thigh. Timeout was completed confirming the correct operative site. Esmarch was used to exsanguinate the leg and tourniquet was inflated to 300 mmHg. A standard anterolateral viewing portals were made with a #11 blade after subdermal 1% lidocaine with epinephrine injection. The knee was distended with normal saline and epinephrine in a 1:1,000,000 mixture, at an initial pressure of 35 mmHg. The arthroscope was inserted from the anterolateral portal and moved into the medial compartment. Next, the anteromedial working portal was made with spinal needle localization. The arthroscopic probe was inserted, and all compartments of the knee were sequentially visualized. FINDINGS: Arthroscopic examination of the knee revealed: 1. Major synovitis of all three compartments. 2. Medial meniscal tear. 3. Lateral meniscal tear. 4. Patellofemoral adhesions. 5. Loose bodies. 6. 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 Partial medial meniscectomy was performed with a combination of hand instruments and a 4.0-mm motorized shaver. The meniscus was debrided to a smooth, stable border with an excursion of less than 3 mm. Partial lateral meniscectomy was performed with a combination of hand instruments and a 4.0-mm motorized shaver. The meniscus was debrided to a smooth, stable border with an excursion of less than 5 mm. The motorized shaver was used to mechanically debride the loose, fibrillated and fragmented chondral edges of the medial femoral condyle to a stable border. Extreme care was taken to not disrupt the adjacent chondral surface. The edges of injured chondral area were probed to ensure stability after the shaver was withdrawn from the knee. The motorized shaver was used to perform a synovectomy of the medial lateral and patellofemoral compartments. The hypertrophic synovium was resected with minimal bleeding. No synovial incarceration was noted after synovectomy when the knee was put through a full passive range of motion. At this point, multiple small soft tissue loose bodies were noted in the medial and lateral gutter areas. Using the aforementioned arthroscopic portals, loose bodies were removed with arthroscopic techniques including graspers and the motorized shaver. Due to injuries to the patellofemoral region resulting in organized scar and suprapatellar adhesions, a decision was made to perform and anterior interval release to decrease the patellofemoral joint reaction force and relieve pressures over the patella and trochlea. The synovectomy was carried over to the suprapatellar pouch and an anterior interval release was performed over the anterior compartment and the suprapatellar pouch with the motorized shaver. The anterior fat pad was released and debulked during this procedure. The inflow was shut off and the area checked for hemostasis. Small bleeders were coagulated with the radiofrequency device. WASHOUT: The medial and lateral gutters were checked for loose bodies. At this point, the ankle was then copiously irrigated utilizing the irrigation solution. Arthroscopic washout was performed with free flowing outflow through the cannula with the arthroscope removed. Finally, 1 mL of 40 mg Depo-Medrol mixed with 9 mL of 0.25% Marcaine was injected within the knee joint. CLOSURE: Portal closure was then accomplished utilizing sutures, and sterile dressing was applied consisting of Xeroform, 4x4's, sterile gauze, and two ABDs with a 6-inch Nelson wrap. In addition, an "Ice-Man" automated portable cooling system pad was applied to the knee, over top of the sterile gauze and underneath the Nelson wrap. This modality is medically necessary to maximize postoperative analgesia and to decrease the use of narcotic analgesics in the postoperative period. The sponge and needle count was correct at the end of the case, and all instruments were inspected and free of defects. Anesthesia was reversed and the patient was transferred to the recovery room in stable condition, having tolerated the procedure well. The attending surgeon was scrubbed and present throughout the critical portions of the case, including all of the intra-articular arthroscopic procedures. Post operatively, the patient will be weight bearing as tolerated and will utilize my standard post arthroscopy rehab protocol. The patient will be started on straight leg raising and quadriceps setting exercises in the recovery room and will progress to prone hangs as well as prone knee flexion exercises using an active assisted construct. During this procedure, I was assisted by Leeanne Hawley PA-C, who assisted in positioning the patient on the operating room table as well as transferring the patient from the operating room table to the recovery room stretcher. In addition, Leeanne Hawley PA-C, assisted me during the actual operative procedure by positioning the patient's extremity to allow for easier arthroscopic access to all areas of the joint. The presence of Leeanne Hawley PA-C, as my operative communications assistant, was medically necessary to ensure the utmost safety of the patient in the pre, intra-, and postoperative periods. Raysa Jackson MD [facility] # [id number]
[2017-03-22 13:08] VITALS: BP 127/66; PULSE 84; TEMP 97.5; O2SAT 97
--- NOTE | 2017-03-22 21:38 | CARD ---
APPROVED REPORT EKG Measurement Heart [id number] <Conclusion> Sinus rhythm with 1st degree AV block Nonspecific ST and T wave abnormality Abnormal ECG
== END 2017-03-22 13:45 | disposition home or self-care (01) ==
LOC: H.OPSURG 06:05
PROVIDERS: ATTEND Orthopaedic Surgery
DX: M23.8X1 Other internal derangements of right knee (principal); E78.5 Hyperlipidemia, unspecified; K21.9 Gastro-esophageal reflux disease without esophagitis; Z21 Asymptomatic human immunodeficiency virus [HIV] infection status; M54.5 Low back pain; I44.0 Atrioventricular block, first degree; M23.41 Loose body in knee, right knee; M94.261 Chondromalacia, right knee; M23.206 Derangement of unspecified meniscus due to old tear or injury, right knee
CPT/HCPCS: 29881; 93005; 97116; 97161; G8978; G8979; G8980; J0171; J0330; J0690; J1030; J1170; J2001; J2250; J2370; J2405; J2704; J3010; J7120

== ENCOUNTER 2018-06-12 06:55 | Emergency (ER) | payer MEDICAID ==
[2018-06-12 06:56] VITALS: BMI 33.9
[2018-06-12 07:34] VITALS: BP 152/93; PULSE 94; TEMP 97.3; O2SAT 98
--- NOTE | 2018-06-12 08:30 | ED PDOC ---
HPI: Male Pain Time Seen by Provider: 06/12/18 07:30 Chief Complaint (Nursing): Male Genitourinary Chief Complaint (Provider): Male Genitourinary History Per: Patient History/Exam Limitations: no limitations Onset/Duration Of Symptoms: Days (x 4) Quality Of Discomfort: Burning Associated Symptoms: Urinary Symptoms (dysuria) Additional Complaint(s): 62 year old male with a history of kidney stones and chronic back pain presents to the ED for evaluation of a burning sensation when he urinates, onset 4 days ago. Patient states that during his last visit to his PMD, he had an ultrasound which showed a small kidney stone. However, the patient is currently experiencing no pain or any other complaints. He has no concern for STD/STI. Denies blood in urine, fever, abdominal pain, and penile discharge. PMD: Dr. Yadira Ovalle Past Medical History Reviewed: Historical Data, Nursing Documentation, Vital Signs Vital Signs: Last Vital Signs Temp 97.3 F L 06/12/18 07:27 Pulse 94 H 06/12/18 07:27 Resp BP 152/93 H 06/12/18 07:27 Pulse Ox 98 06/12/18 07:27 - Medical History PMH: Anxiety, Back Problems, Bipolar Disorder, Depression, HIV, Hypercholesterolemia Denies: Chronic Kidney Disease - Surgical History Surgical History: No Surg Hx Other surgeries: right knee - Family History Family History: States: Unknown Family Hx - Immunization History Hx Tetanus Toxoid Vaccination: No Hx Influenza Vaccination: No Hx Pneumococcal Vaccination: No - Home Medications Home Medications: Ambulatory Orders Medication Instructions Recorded Amitriptyline [Elavil] 25 mg PO HS 09/17/16 Ergocalciferol (Vitamin D2) 50,000 unit PO BID 09/17/16 [Vitamin D2] Risperidone [Risperdal] 0.25 mg PO DAILY 03/16/17 Aspirin [Aspirin EC] 325 mg PO DAILY 03/22/17 Docusate [Colace] 1 cap PO BID PRN 03/22/17 Elviteg/Bianca/Emtric/Tenofo Dis 1 tab PO DAILY 03/22/17 [Stribild Tablet] Ondansetron HCl [Zofran] 4 mg PO Q4 PRN 03/22/17 Topiramate [Topamax] 25 mg PO BID 03/22/17 oxyCODONE/Acetaminophen [Percocet 1 tab PO Q4 PRN 03/22/17 5/325 mg Tab] Ciprofloxacin 0.3% [Ciloxan 0.3% 2 drop OD Q2 #1 bottle 11/23/17 Renetta BELINDA] Sulfamethoxazole/Trimethoprim 1 tab PO BID #14 tab 06/12/18 [Bactrim DS 800 mg-160 mg] - Allergies Allergies/Adverse Reactions: Allergies Allergy/AdvReac Type Severity Reaction Status Date / Time ibuprofen [From Motrin] AdvReac VOMITING Verified 11/23/17 10:42 Review of Systems ROS Statement: Except As Marked, All Systems Reviewed And Found Negative Constitutional: Negative for: Fever, Chills Gastrointestinal: Negative for: Nausea, Vomiting Genitourinary Male: Positive for: Dysuria. Negative for: Frequency, Incontinence, Hematuria, Penile Discharge Musculoskeletal: Negative for: Back Pain Physical Exam - Reviewed Nursing Documentation Reviewed: Yes Vital Signs Reviewed: Yes - Physical Exam Appears: Positive for: No Acute Distress (comfortable) Head Exam: Positive for: ATRAUMATIC, NORMAL INSPECTION, NORMOCEPHALIC Skin: Positive for: Normal Color, Dry. Negative for: Rash Eye Exam: Positive for: EOMI, Normal appearance, PERRL Neck: Positive for: Normal, Painless ROM Respiratory: Positive for: Normal Breath Sounds. Negative for: Respiratory Distress Extremity: Positive for: Normal ROM (x 4). Negative for: Deformity Neurological/Psych: Positive for: Awake, Alert, Normal Tone, Oriented (x 3). Negative for: Motor/Sensory Deficits - ECG O2 Sat by Pulse Oximetry: 98 (RA) Pulse Ox Interpretation: Normal - Progress Re-evaluation Time: 10:03 Condition: Re-examined, Improved Medical Decision Making Medical Decision Makin:45 Impression: dysuria; no pain reported Differential diagnoses include but are not limited to: UTI and urethritis Initial Plan: --Urine dip --UA --Urine cx Scribe Attestation: Documented by Fariba Larry, acting as a scribe for Akanksha Shine MD Provider Scribe Attestation: All medical record entries made by the Scribe were at my direction and personally dictated by me. I have reviewed the chart and agree that the record accurately reflects my personal performance of the history, physical exam, medical decision making, and the department course for this patient. I have also personally directed, reviewed, and agree with the discharge instructions and disposition. Disposition - Clinical Impression Clinical Impression: Urinary tract infection - Patient ED Disposition Is Patient to be Admitted: No Doctor Will See Patient In The: Office Counseled Patient/Family Regarding: Studies Performed, Diagnosis, Need For Followup - Disposition Referrals: [facility] [Outside] Disposition: Routine/Home Disposition Time: 10:03 Condition: GOOD Additional Instructions: JEFFREY BROWN, thank you for letting us take care of you today. Your provider was Akanksha Shine MD and you were treated for URINARY DISCOMFORT. The emergency medical care you received today was directed at your acute symptoms. If you were prescribed any medication, please fill it and take as directed. It may take several days for your symptoms to resolve. Return to the Emergency Department if your symptoms worsen, do not improve, or if you have any other problems. Please contact your doctor or call one of the physicians/clinics you have been referred to that are listed on the Patient Visit Information form that is included in your discharge packet. Bring any paperwork you were given at discharge with you along with any medications you are taking to your follow up visit. Our treatment cannot replace ongoing medical care by a primary care provider outside of the emergency department. Thank you for allowing the [facility] team to be part of your care today. Prescriptions: Sulfamethoxazole/Trimethoprim [Bactrim DS 800 mg-160 mg] 1 tab PO BID #14 tab Instructions: Urinary Tract Infection, Adult (DC)
[2018-06-12 08:50] LABS: SQUAMOUS EPITHIAL 1 /hpf (0-5); URINE BILIRUBIN NEGATIVE (NEGATIVE); URINE BLOOD MODERATE (NEGATIVE); URINE CLARITY SLIGHTY-CLOUDY (Clear); URINE COLOR YELLOW (YELLOW); URINE GLUCOSE (UA) NEG (NEGATIVE); URINE LEUKOCYTE ESTERASE NEG Leu/uL (Negative); URINE PROTEIN NEGATIVE (NEGATIVE); URINE UROBILINOGEN 0.2-1.0 mg/dL (0.2-1.0)
== END 2018-06-12 10:09 | disposition home or self-care (01) ==
LOC: H.ER 06:55
DX: N39.0 Urinary tract infection, site not specified (principal)